=== PATIENT | male | born 1940 | race Caucasian/White ===

== ENCOUNTER 2020-05-19 01:10 | Inpatient (IN) ==
[2020-05-19] MEDS ORDERED: 0.9 % Sodium Chloride 1,000 ML IVC ONE (01:57)
[2020-05-19 02:15] LABS: White Blood Count 7.4 K/mcL (4.3-11.1)
[2020-05-19 02:16] LABS: Basophils % 0.4 %; Eosinophils # 0.1 K/mcL (0.0-0.6); Eosinophils % 1.6 %; Hematocrit 40.7 % (37.5-50.1); Hemoglobin 12.8 g/dL (12.9-16.9); Immature Granulocytes % 0.3 % (0-4); Lymphocytes # 1.5 K/mcL (0.6-4.6); Lymphocytes % 20.3 %; Mean Corpuscular HGB Conc 31.4 g/dL (31.6-35.5); Mean Corpuscular Hemoglobin 28.3 pg (28.0-33.3); Mean Corpuscular Volume 89.8 fL (83.0-100.0); Mean Platelet Volume 9.9 fL (9.4-12.4); Monocytes # 0.7 K/mcL (0.0-1.3); Monocytes % 9.3 %; Platelet Count 209 K/mcL (140-400); Red Blood Count 4.53 M/mcL (4.19-5.50); Red Cell Distribution Width 12.6 % (11.5-14.5); Segmented Neutrophils % 68.1 %
[2020-05-19 02:36] LABS: Alanine Aminotransferase 41 Units/L (7-52); Albumin 3.5 g/dL (3.5-5.7); Albumin/Globulin Ratio 1.3 (1.1-2.2); Alkaline Phosphatase 66 Units/L (34-104); Aspartate Amino Transferase 41 Units/L (13-39); BUN/Creatinine Ratio 17 (6-26); Bilirubin,Direct 0.2 mg/dL (0.0-0.2); Bilirubin,Total 1.2 mg/dL (0.3-1.0); Blood Urea Nitrogen 13 mg/dL (8-23); Calcium 9.3 mg/dL (8.6-10.3); Carbon Dioxide 28 mEq/L (23-29); Chloride 105 mEq/L (98-107); Globulin 2.7 g/dL (2.4-3.5); Glucose 117 mg/dL (70-105); Lipase 26 Units/L (11-82); Osmolality,Calculated 293 (280-300); Potassium 3.6 mEq/L (3.5-5.1); Sodium 141 mEq/L (136-145); Total Protein 6.2 g/dL (6.4-8.9); Troponin I < 0.03 ng/mL (< 0.04); eGFR For African Americans > 60 (> 60); eGFR For Non-African Americans > 60 (> 60)
[2020-05-19 02:58] LABS: Adenovirus Not Detected (Not Detect); Bordetella Pertussis Not Detected (Not Detect); Chlamydophila pneumoniae Not Detected (Not Detect); Coronavirus 229E Not Detected (Not Detect); Coronavirus HKU1 Not Detected (Not Detect); Coronavirus NL63 Not Detected (Not Detect); Coronavirus OC43 Not Detected (Not Detect); Human Metapneumovirus Not Detected (Not Detect); Human Rhinovirus/Enterovirus Not Detected (Not Detect); Influenza A Subtype 2009 H1 Not Detected (Not Detect); Influenza B Not Detected (Not Detect); Mycoplasma pneumoniae Not Detected (Not Detect); Parainfluenza Virus 1 Not Detected (Not Detect); Parainfluenza Virus 2 Not Detected (Not Detect); Parainfluenza Virus 3 Not Detected (Not Detect); Parainfluenza Virus 4 Not Detected (Not Detect); Respiratory Syncytial Virus Not Detected (Not Detect)
[2020-05-19 03:03] LABS: Amorphous Sediment,Urine Few per hpf (None-Few); Bacteria,Urine Few per hpf (None-Few); Bilirubin,Urine Negative (Negative); Blood,Urine Negative (Negative); Budding Yeast,Urine Few per hpf (None Seen); Clarity,Urine Turbid (Clear); Color,Urine Yellow (Yellow); Glucose,Urine (UA) Normal (Normal); Ketones,Urine Negative (Negative); Leukocyte Esterase,Urine Trace (Negative); Mucus,Urine Few per lpf (None-Few); Nitrite,Urine Negative (Negative); Protein,Urine Trace mg/dL (Neg-Trace); Specific Gravity,Urine 1.027 (1.010-1.025); WBC,Urine 15-30 per hpf (0-3)
[2020-05-19] MEDS ORDERED: levoFLOXacin 750 MG/150 ML 750 MG/150 ML BAG IVPB ONE (05:10)
[2020-05-19] MEDS ORDERED: cefTRIAXone 1,000 MG in Water for inj. (sterile) 10 ML IVP ONE (05:22)
[2020-05-19] MEDS ORDERED: Azithromycin 500 MG in D5% in Water 250 ML IVPB STA (05:23)
[2020-05-19] MEDS ORDERED: Naloxone 0.4 MG/ML INJ IVP PRN (05:54)
[2020-05-19] MEDS ORDERED: Ondansetron 4 MG/2 ML VIAL IVP PRN (05:54)
[2020-05-19] MEDS ORDERED: D5% in Water 1,000 ML IVC PRN ×2 (06:00→17:53)
[2020-05-19] MEDS ORDERED: Dextrose Gel 15 GM/37.5 ML TUBE PO PRN ×4 (06:00→17:53)
[2020-05-19] MEDS ORDERED: *HR* Dextrose 50 % in Water (Vial) 50 ML VIAL IVP PRN ×2 (06:00→17:53)
[2020-05-19] MEDS: *HR* Enoxaparin 40 MG/0.4 ML SYRINGE SQ SCH (06:58)
[2020-05-19] MEDS: Insulin LISPRO 300 UNITS/3 ML VIAL SQ SCH ×4 (09:16→18:07)
[2020-05-19] MEDS: Aspirin Enteric Coated 81 MG Tablet PO SCH (09:16)
[2020-05-19] MEDS: polyethylene glycoL 3350 17 GM POWD.PACK PO SCH (09:16)
[2020-05-19] MEDS: Sennosides/Docusate Sodium TABLET PO SCH (09:16)
[2020-05-19] MEDS ORDERED: Insulin DETEMIR 100 UNIT/ML X5UNITS SQ SCH (21:00)
[2020-05-19] MEDS ORDERED: QUEtiapine Fumarate 25 MG TABLET PO SCH (21:00)
[2020-05-19] MEDS ORDERED: Insulin LISPRO 300 UNITS/3 ML VIAL SQ SCH (21:00)
[2020-05-20 02:14] LABS: Basophils % 0.4 %; Eosinophils # 0.1 K/mcL (0.0-0.6); Eosinophils % 0.5 %; Hemoglobin 12.9 g/dL (12.9-16.9); Immature Granulocytes % 0.4 % (0-4); Lymphocytes # 1.3 K/mcL (0.6-4.6); Lymphocytes % 12.4 %; Mean Corpuscular HGB Conc 31.5 g/dL (31.6-35.5); Mean Corpuscular Hemoglobin 27.7 pg (28.0-33.3); Mean Corpuscular Volume 88.2 fL (83.0-100.0); Mean Platelet Volume 9.7 fL (9.4-12.4); Monocytes # 0.8 K/mcL (0.0-1.3); Neutrophils # 8.1 K/mcL (1.6-8.9); Platelet Count 227 K/mcL (140-400); Red Blood Count 4.65 M/mcL (4.19-5.50); Red Cell Distribution Width 12.5 % (11.5-14.5); Segmented Neutrophils % 78.3 %; White Blood Count 10.4 K/mcL (4.3-11.1)
[2020-05-20 02:30] LABS: BUN/Creatinine Ratio 19 (6-26); Blood Urea Nitrogen 13 mg/dL (8-23); Calcium 9.2 mg/dL (8.6-10.3); Carbon Dioxide 26 mEq/L (23-29); Chloride 103 mEq/L (98-107); Glucose 103 mg/dL (70-105); Magnesium 1.8 mg/dL (1.6-2.6); Osmolality,Calculated 284 (280-300); Potassium 3.6 mEq/L (3.5-5.1); Sodium 137 mEq/L (136-145); eGFR For African Americans > 60 (> 60); eGFR For Non-African Americans > 60 (> 60)
[2020-05-20] MEDS: Sennosides/Docusate Sodium TABLET PO SCH ×2 (03:25→14:53)
[2020-05-20] MEDS: Gabapentin 100 MG CAPSULE PO SCH ×3 (03:25→15:53)
[2020-05-20] MEDS: polyethylene glycoL 3350 17 GM POWD.PACK PO SCH ×2 (03:25→14:53)
[2020-05-20] MEDS: *HR* Enoxaparin 40 MG/0.4 ML SYRINGE SQ SCH (03:37)
[2020-05-20] MEDS: Insulin LISPRO 300 UNITS/3 ML VIAL SQ SCH ×4 (03:37→18:34)
[2020-05-20] MEDS ORDERED: Azithromycin 500 MG in 0.9 % Sodium Chloride 250 ML IVPB SCH (06:00)
[2020-05-20] MEDS ORDERED: QUEtiapine Fumarate 25 MG TABLET PO SCH (09:00)
[2020-05-20] MEDS ORDERED: cefTRIAXone 1,000 MG in Water for inj. (sterile) 10 ML IVP SCH (09:00)
[2020-05-20] MEDS ORDERED: Finasteride 5 MG TABLET PO SCH (09:00)
[2020-05-20] MEDS ORDERED: E-Z-HD (BARIUM SULF) SUSPENSION PO ONE (12:35)
[2020-05-20] MEDS ORDERED: E-Z-PAQUE (BARIUM SULF) SUSP 1 BOTTLE PO ONE (12:35)
[2020-05-20] MEDS: Aspirin Enteric Coated 81 MG Tablet PO SCH (14:52)
[2020-05-20] MEDS ORDERED: *HR* LORazepam Oral Conc 2 MG/ML SL PRN (15:16)
[2020-05-20] MEDS ORDERED: Morphine Sulfate Oral CONC 10 MG/0.5 ML ORAL.SYG SL PRN (15:17)
[2020-05-20] MEDS ORDERED: Scopolamine Patch 1.5 MG PATCH.TD72 TD SCH (16:00)
[2020-05-20 19:17] VITALS: BP 111/60
== END 2020-05-20 20:18 | disposition hospice, home (50) | DRG 177 ==
LOC: EMEROOARM 01:10 → 2ANU 01:10 → SUATTDRO 05:47 → 2ANU 06:35
PROVIDERS: ADMIT Internal Medicine; ATTEND Pharmacist